=== PATIENT | male | born 1985 | race Caucasian/White ===

== ENCOUNTER 2018-10-18 23:13 | Inpatient (IN) | payer OTHER ==
[~2018-10-18] VITALS: Ht 165.1 cm; Wt 122.0 kg
--- NOTE | ~2018-10-18 | OP ---
[facility] [address] [place] [address] OPERATIVE REPORT Name: SUKUMAR CAMP Room: [address] IN M.R.#: [id number] Admission: 10/19/18 Attend Phys: Bonifacio Reynaga MD Discharge: Date of : 83 Report #: [id number] THIS REPORT FOR: //name// CC: Bonifacio Reynaga [facility] physician/PCP DATE OF SERVICE: 10/19/2018 PREOPERATIVE DIAGNOSIS: Left proximal ureteral calculus. POSTOPERATIVE DIAGNOSIS: Left proximal ureteral calculus. PROCEDURE: Cystoscopy, left retrograde pyelogram, left ureteral stent placement. SURGEON: Lex Jones M.D. ANESTHESIA: General. ESTIMATED BLOOD LOSS: None. DRAINS: 6 x 28 left ureteral stent. SPECIMENS: None. COMPLICATIONS: None. INDICATIONS: This is a 32-year-old male with a recently diagnosed left proximal ureteral calculus. After discussing options for management, he has decided to undergo cystoscopy with left retrograde pyelogram, possible ureteroscopy with laser stone manipulation and left ureteral stent placement. Risks of procedure were explained including but not limited to bleeding, infection, anesthesia, cardiopulmonary and vascular events, injuries to urethra, bladder, ureter and surrounding structures, possible development of strictures, possible need for further procedures, possible inability to access or bypass stone/obstruction. We also discussed stent discomfort and the need for timely followup regarding any stent left in place. He voices clear understanding and wants to proceed. DESCRIPTION OF PROCEDURE: The patient was on perioperative IV antibiotics. After induction of general anesthesia, he was positioned, prepped and draped in the lithotomy position. Cystourethroscopy was performed after a timeout procedure. There is a mild stenosis of the distal urethra, which was dilated with obturators to 23-Australian. A cystoscope and sheath were then advanced and the urethra examined. The anterior urethra is otherwise normal. The prostatic urethra is normal, though the bladder neck is elevated. The bladder was entered and systematically examined with 30- and 70-degree scopes. [place] [address] OPERATIVE REPORT Name: SUKUMAR CAMP Room: [address] IN ..#: [id number] Admission: 10/19/18 Attend Phys: Bonifacio Reynaga MD Discharge: Date of : 83 Report #: [id number] or lesions in the bladder. The ureteral orifices are orthotopic. No blood is seen from either. Fluoroscopic interrogation is consistent with a phlebolith in the left side of the pelvis. A 5-Australian ureteral catheter was used to perform a retrograde pyelogram on the left, which confirms that the calcification in the pelvis is outside the course of the ureter. The distal and mid ureter are normal. The filling defect is noted in the proximal ureter just distal to the ureteropelvic junction. The renal pelvis is somewhat dilated. Fluoroscopic guidance was used to pass two sensor wires sequentially into the left renal pelvis. I then attempted to pass the obturator for a ureteral access sheath (07/31 x 36 cm) with fluoroscopic guidance. This would not pass into the ureter with gentle manipulation likely due to difficulty negotiating the bladder neck and distal ureter. The obturator and one of the wires was removed and I elected to place a stent. The remaining wire was loaded onto the cystoscope and used for placement of a 6 x 28 left ureteral stent with good position confirmed fluoroscopically and visually. Drainage from the stent was clear. The bladder was emptied and the scope was removed. Lidocaine jelly was given per urethra. The patient tolerated the procedure well and was taken to the recovery room in stable condition. PLAN: Will be to have him follow up as an outpatient with a repeat radiograph and decide on further stone management from there. By: [id number] Jones MD /stan
[2018-10-18 23:15] VITALS: BP 166/100
[2018-10-18 23:38] LABS: ABSOLUTE BASOPHILS 0.1 thou/uL (0.0-0.2); ABSOLUTE EOSINOPHILS 0.5 thou/uL (0.0-0.7); ABSOLUTE LYMPHOCYTES 2.2 thou/uL (0.8-5.3); ABSOLUTE MONOCYTES 0.8 thou/uL (0.0-1.2); ABSOLUTE NEUTROPHILS 7.5 thou/uL (1.6-8.1); BASOPHILS 0.8 %; EOSINOPHILS 4.2 %; HEMATOCRIT 42.5 % (42.0-52.0); HEMOGLOBIN 14.5 gm/dL (14.0-18.0); LYMPHOCYTES 19.8 %; MCH 29.8 pg (26.0-34.0); MCHC 34.2 g/dL (28.0-37.0); MCV 87.2 fL (80.0-100.0); MONOCYTES 7.5 %; MPV 7.5 fl. (7.2-11.1); NUCLEATED RBCS 0 /100WBC; PLATELET COUNT* 325 thou/uL (150-400); POLYS 67.7 %; RBC 4.87 mil/uL (4.50-6.00); RDW-CV 13.5 % (10.5-14.5); WBC 11.1 thou/uL (4.0-11.0)
[2018-10-18 23:51] LABS: CALCIUM 8.8 mg/dL (8.5-10.1); POTASSIUM 3.8 mmol/L (3.5-5.1)
[2018-10-18 23:56] LABS: ALBUMIN 3.9 g/dL (3.4-5.0); TOTAL BILIRUBIN 0.7 mg/dL (<0.1-1.0); TOTAL PROTEIN 7.6 g/dL (6.4-8.2)
[2018-10-19] VITALS (7 sets, daily range): BP systolic 137–158; BP diastolic 89–98
[2018-10-19 00:37] LABS: URINE BLOOD 3+ (Negative); URINE CLARITY CLEAR; URINE COLOR DARK YELLOW; URINE GLUCOSE-RANDOM NEGATIVE (Negative); URINE KETONES NEGATIVE (Negative); URINE LEUKOCYTES-REFLEX NEGATIVE (Negative); URINE NITRITE-REFLEX NEGATIVE (Negative); URINE PROTEIN 2+ (Negative); URINE UROBILINOGEN 0.2 E.U./dl (0.2-1.0)
[2018-10-19 00:42] LABS: URINE BILIRUBIN 1+ (Negative)
[2018-10-19 00:44] LABS: AMORPHOUS URATES Moderate /LPF (None Seen); BACTERIA-REFLEX >30 Many /HPF (None Seen); COARSE GRANULAR CASTS 0-3 Few /LPF (None Seen); FINE GRANULAR CASTS 0-3 Few /LPF (None Seen); ICTOTEST (BILI CONFIRMATORY) Negative (Negative); MUCUS 4-6 Moderate strn/LPF (None Seen); SQUAMOUS 0-3 Few /LPF (0-3); URINE RBC >20 Many /HPF (0-2); URINE WBC-REFLEX 0-5 Rare /HPF (0-5)
[2018-10-19 09:19] LABS: CALCIUM 8.5 mg/dL (8.5-10.1); CREATININE 0.8 mg/dL (0.6-1.3); MAGNESIUM 1.9 mg/dL (1.8-2.4); POTASSIUM 3.8 mmol/L (3.5-5.1)
[2018-10-19] MEDS ORDERED: HYDROCODONE-AP1 EAC6 PO (18:09)
[2018-10-19] MEDS ORDERED: LEVSIN0.125 MG SUBLING (18:10)
[2018-10-19] MEDS ORDERED: FLOMAX0.4 MG PO (18:11)
[2018-10-19 21:10] LABS: GLYCOHEMOGLOBIN (HGB A1C) 5.8 % (4.8-5.6)
[2018-10-20] VITALS: BP 139/87
[2018-10-20 04:00] VITALS: BP 130/85
[2018-10-20 04:25] LABS: HEMATOCRIT 39.6 % (42.0-52.0); HEMOGLOBIN 13.6 gm/dL (14.0-18.0); MCH 30.1 pg (26.0-34.0); MCHC 34.3 g/dL (28.0-37.0); MCV 87.8 fL (80.0-100.0); MPV 7.5 fl. (7.2-11.1); RBC 4.51 mil/uL (4.50-6.00); RDW-CV 13.5 % (10.5-14.5); WBC 9.7 thou/uL (4.0-11.0)
[2018-10-20 04:42] LABS: CALCIUM 8.9 mg/dL (8.5-10.1); CREATININE 0.8 mg/dL (0.6-1.3); POTASSIUM 4.4 mmol/L (3.5-5.1)
[2018-10-20 08:00] VITALS: BP 145/82
[2018-10-20 10:34] VITALS: BP 137/93
[2018-10-20 11:31] VITALS: BP 137/93
== END 2018-10-20 11:15 | disposition home or self-care (01) | DRG 660 ==
LOC: M.ERS 23:13 → M.ORTHSURG 10-19 00:29 → M.TBA-ER 10-19 00:29 → M.ORTHSURG 10-19 00:52
PROVIDERS: Family Medicine; Internal Medicine; ADMIT Internal Medicine
PROC: BT1F1ZZ Fluoroscopy of Left Kidney, Ureter and Bladder using Low Osmolar Contrast (ICD-10-PCS; principal; 2018-10-19)
PROC: 0T778DZ Dilation of Left Ureter with Intraluminal Device, Via Natural or Artificial Opening Endoscopic (ICD-10-PCS; principal; 2018-10-19)
DX: N13.2 Hydronephrosis with renal and ureteral calculous obstruction (principal); R65.10 Systemic inflammatory response syndrome (SIRS) of non-infectious origin without acute organ dysfunction; Z68.41 Body mass index [BMI] 40.0-44.9, adult; E66.9 Obesity, unspecified; R73.9 Hyperglycemia, unspecified; R31.9 Hematuria, unspecified; Z28.89 Immunization not carried out for other reason; Z79.899 Other long term (current) drug therapy